=== PATIENT | male | born 1965 | race Caucasian/White ===

== ENCOUNTER 2016-12-23 20:01 | Emergency (ER) | payer BC ==
[~2016-12-23] VITALS: Ht 177.8 cm; Wt 100.0 kg
[2016-12-23] MEDS ORDERED: ONDANSETRON 2MG/ML, 2ML ONE (20:29)
[2016-12-23] MEDS ORDERED: FAMOTIDINE 20 MG/2 ML ONE (20:29)
[2016-12-23] MEDS ORDERED: ONDANSETRON 2MG/ML, 2ML IVPush ONE (20:30)
[2016-12-23] MEDS ORDERED: FAMOTIDINE 20 MG/2 ML IVP ONE (20:30)
[2016-12-23] MEDS ORDERED: SODIUM CHLORIDE 0.9% 1,000ML IVBOLUS ONE (20:30)
[2016-12-23 20:35] LABS: PH, VENOUS 7.469 pH (7.320-7.420)
[2016-12-23 20:39] LABS: HEMATOCRIT 56.5 % (39.2-51.8); HEMOGLOBIN 19.1 g/dL (13.7-18.0); WHITE BLOOD COUNT 11.1 x10^3/uL (3.4-10)
[2016-12-23 20:48] LABS: ASPARTATE AMINO TRANSFERASE 45 U/L (15-37); BLOOD UREA NITROGEN 28 mg/dL (7-18)
[2016-12-23 20:53] LABS: IS PT STATUS REG ER OR PRE ER? YES
[2016-12-23] MEDS ORDERED: CYCL-259 PO (21:31)
[2016-12-23] MEDS ORDERED: LISI5TAB7 PO (21:31)
[2016-12-23] MEDS ORDERED: GEMF600T3 PO (21:31)
[2016-12-23] MEDS ORDERED: GLYB5TAB3 PO (21:31)
[2016-12-23] MEDS ORDERED: OXYC-302 PO (21:31)
[2016-12-23 23:15] LABS: PATH.CAST-FLAG NOT PRESENT; SPERM-FLAG NOT PRESENT; SRC-FLAG NOT PRESENT; XTAL-FLAG NOT PRESENT; YLC-FLAG NOT PRESENT
[2016-12-24] MEDS ORDERED: MAALOX/HYOSCYAMINE/LIDOCAINE 45 ML BTL PO ONE
[2016-12-24] MEDS ORDERED: MAALOX/HYOSCYAMINE/LIDOCAINE 45 ML BTL ONE (00:07)
[2016-12-24 00:12] VITALS: BP 123/79
== END 2016-12-24 00:46 | disposition home or self-care (01) ==
LOC: ED 23:24
DX: R11.2 Nausea with vomiting, unspecified (principal); E11.9 Type 2 diabetes mellitus without complications
CPT/HCPCS: 36415; 71010; 76700; 80053; 81001; 82010; 82803; 83690; 84484; 85025; 93005; 96361; 96374; 96375; 99285; J2405; J7030; S0028

== ENCOUNTER 2021-02-15 19:26 | Emergency (ER) | payer BC, OTHER ==
[~2021-02-15] VITALS: Ht 177.8 cm; Wt 100.9 kg
[~2021-02-15 19:26] MED LIST: CYCL10TA2 PO; GEMF-31 PO; GLYB5TAB3 PO; LISI5TAB7 PO; OXYC1TAB12 PO
[2021-02-15 19:29] VITALS: BP 184/104
--- NOTE | 2021-02-15 19:36 | NUR ---
BGL IN TRAIGE [address]
--- NOTE | 2021-02-15 20:03 | NUR ---
pt to room from lobby
[2021-02-15 20:15] LABS: BASOPHILS % (AUTO) 1 % (0-1); EOSINOPHILS % (AUTO) 2 % (1-7); LYMPHOCYTES % (AUTO) 34 % (22-44); MEAN CORPUSCULAR HEMOGLOBIN 30.8 pg (27.5-34.5); MEAN CORPUSCULAR HGB CONC 34.8 g/dL (33.2-36.2); MEAN PLATELET VOLUME 8.4 fL (7.4-10.4); MONOCYTES % (AUTO) 9 % (2-9); NEUTROPHILS % (AUTO) 54 % (42-75); PLATELET COUNT 198 x10^3/uL (130-400); RED BLOOD COUNT 5.39 x10^6/uL (4.38-5.82); RED CELL DISTRIBUTION WIDTH 12.9 % (9.4-14.8)
[2021-02-15 20:20] LABS: HCT (SEDRATE) 47.8 % (39.2-51.8)
[2021-02-15 20:30] LABS: ALANINE AMINOTRANSFERASE 46 U/L (12-78); ALBUMIN 3.9 g/dL (3.4-5.0); ANION GAP 7 mmol/L (5-15); C-REACTIVE PROTEIN, QUANT 0.25 mg/dL (0.02-0.49); CALCIUM 9.2 mg/dL (8.5-10.1); CHLORIDE 104 mmol/L (98-107)
[2021-02-15 20:33] LABS: ALKALINE PHOSPHATASE 88 U/L (45-117); BILIRUBIN,TOTAL 0.4 mg/dL (0.2-1.0); CREATININE 0.88 mg/dL (0.7-1.3); TOTAL PROTEIN 7.8 g/dL (6.4-8.2)
== END 2021-02-15 21:43 | disposition home or self-care (01) ==
LOC: ED 20:00
DX: E11.621 Type 2 diabetes mellitus with foot ulcer (principal); L97.411 Non-pressure chronic ulcer of right heel and midfoot limited to breakdown of skin
CPT/HCPCS: 36415; 80053; 82962; 85025; 85651; 86140; 87040; 99284